=== PATIENT | female | born 1960 | race Caucasian/White ===

== ENCOUNTER 2018-02-01 10:55 | Emergency (ER) | payer OTHER ==
[~2018-02-01 10:55] MED LIST: AMOXICILLIN500 MG PO; ANBESOL PO; COZAAR 50MG TAB50 MG PO; PERCOCET 325 MG1 TA2 PO; TYLENOL500 MG PO
[2018-02-01 12:59] LABS: ABSOLUTE BASOPHIL COUNT 0.1 /CUMM (0.0-0.2); ABSOLUTE EOSINOPHIL COUNT 0.1 /CUMM (0.0-0.7); ABSOLUTE GRANULOCYTE CT 5.1 /CUMM (1.4-6.5); ABSOLUTE LYMPH COUNT 2.4 /CUMM (1.2-3.4); ABSOLUTE MONOCYTE COUNT 0.4 /CUMM (0.10-0.60); BASOPHIL % 0.8 % (0.0-2.0); EOSINOPHIL % 1.5 % (0-5); GRANULOCYTE % 62.9 % (42.2-75.2); HEMATOCRIT 44.9 % (37-47); MEAN CORPUSCULAR HGB 31.1 PG (27.0-31.0); MEAN CORPUSCULAR HGB CONC 33.6 G/DL (33.0-37.0); MEAN CORPUSCULAR VOLUME 92.5 FL (81.0-99.0); MEAN PLATELET VOLUME 7.5 FL (7.4-10.4); PLATELET COUNT 304 /CUMM (130-400); RBC DISTRIBUTION WIDTH 13.8 % (11.5-14.5); RED BLOOD CELL CT 4.85 /CUMM (4.20-5.40); WHITE BLOOD CELL COUNT 8.1 /CUMM (4.8-10.8)
--- NOTE | 2018-02-01 13:09 | ED GENERAL ADULT ---
History of Present Illness General Chief Complaint: General Adult Stated Complaint: HIGH BLOOD PRESSURE Source: patient Exam Limitations: no limitations Vital Signs & Intake/Output Vital Signs & Intake/Output Vital Signs Date Time Temp Pulse Resp B/P B/P Pulse O2 O2 Flow FiO2 Mean Ox Delivery Rate 02/01 1448 198/86 02/01 1403 99 216/118 02/01 1230 200/104 02/01 1059 98.4 93 18 184/100 98 Room Air Allergies Coded Allergies: NO KNOWN ALLERGIES (03/02/11) Reconcile Medications Losartan Potassium 100 MG TABLET 1 TAB PO DAILY HEART (Reported) Triage Note: 57 YO FEMALE TO TRIAGE FOR EVAL OF HIGH BLOOD PRESSURE, DENIES CHEST PAIN/LAU/BLURRY VISION. REPORTS SHE DID NOT TAKE HER BP MEDS THIS AM. PT STATES SHE WAS AT HER DRS OFFICE THIS AM AND THEY SENT HER HERE FOR HIGH BLOOD PRESSURE. STATES TAKES LOSARTAN 100MG DAILY. Triage Nurses Notes Reviewed? yes HPI: Patient presents for evaluation of elevated blood pressure. Patient states that she was seeing her primary care physician when they noted high blood pressure. She was told to go to the emergency department for an evaluation. She states she last saw her primary care physician about a year and a half ago. She typically does not take her blood pressure at home and can't say when the blood pressure began to elevate. She has been compliant with her current antihypertensive medication (losartan 100 mg daily). She denies drug or alcohol use but does smoke a pack of cigarettes daily. She denies chest pain, headache, visual changes or abdominal pain. Past History Travel History Traveled to [place] past 21 day No Medical History Any Pertinent Medical History? 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 No Review of Systems Review of Systems Constitutional: Reports: no symptoms. EENTM: Reports: no symptoms. Respiratory: Reports: no symptoms. Cardiovascular: Reports: no symptoms. GI: Reports: no symptoms. Genitourinary: Reports: no symptoms. Musculoskeletal: Reports: no symptoms. Skin: Reports: no symptoms. Neurological/Psychological: Reports: no symptoms. Hematologic/Endocrine: Reports: no symptoms. Immunologic/Allergic: Reports: no symptoms. All Other Systems: Reviewed and Negative Physical Exam Physical Exam General Appearance: SEE BELOW Comments: Gen.: Well-nourished, well-developed, no acute respiratory distress. Overweight.` Head: Normocephalic, atraumatic. Eyes: Normal inspection bilaterally Ears: Normal inspection bilaterally Nose: Normal inspection Throat/mouth : Moist mucosa Neck: Supple, full range of motion, no goiter Heart: Regular rate and rhythm, no murmurs rubs or gallops Lungs: Clear to auscultation bilaterally with normal air entry Chest: Nontender Back: Normal range of motion Abdomen: Soft, nontender, nondistended, normal bowel sounds Extremities: Normal range of motion grossly, equal radial pulses, no cyanosis clubbing or edema Neurologic: Cranial nerves grossly intact, speech is clear Skin: warm and dry Psychiatric: Calm, cooperative, no apparent delusions or hallucinations Core Measures ACS in differential dx? No CVA/TIA Diagnosis: No Sepsis Present: No Sepsis Focused Exam Completed? No Progress Differential Diagnoses I considered the following diagnoses in my evaluation of the patient: Medication noncompliance, essential hypertension, end organ injury, dietary indiscretion Plan of Care: Orders Procedure Date/time Status URINALYSIS 02/01 1103 Active COMPREHENSIVE METABOLIC PANEL 02/01 1103 Complete CBC WITHOUT DIFFERENTIAL 02/01 1103 Complete EKG 02/01 1103 Active Laboratory Tests 02/01/18 1244: Anion Gap 5, Estimated GFR > 60, BUN/Creatinine Ratio 13.3, Glucose 124 H, Calcium 9.7, Total Bilirubin 0.5, AST 21, ALT 26, Alkaline Phosphatase 68, Total Protein 6.6, Albumin 4.0, Globulin 2.6, Albumin/Globulin Ratio 1.5, CBC w Diff NO MAN DIFF REQ, RBC 4.85, MCV 92.5, MCH 31.1 H, MCHC 33.6, RDW 13.8, MPV 7.5, Gran % 62.9, Lymphocytes % 29.3, Monocytes % 5.5, Eosinophils % 1.5, Basophils % 0.8, Absolute Granulocytes 5.1, Absolute Lymphocytes 2.4, Absolute Monocytes 0.4 , Absolute Eosinophils 0.1, Absolute Basophils 0.1 Initial ED EKG: NSR, rate (98), no ST T wave changes Comments: 02/01/2018 1:20:57 PM patient's case discussed with Dr. Hdez who recommends the addition of hydrochlorothiazide. 02/01/2018 3:04:34 PM Tracey's blood pressure is trending downwards and she feels well at this time. I have discussed with her avoiding caffeine and salt. I've also stress she follow-up with her primary care physician for reevaluation of her blood pressure on Monday or Monday of this week. At discharge she requested an asthma inhaler because of difficulties with her breathing. Her daughter states that he does wheeze from time to time likely due to her cigarette smoking. Departure Departure Disposition: HOME OR SELF CARE Condition: Stable Clinical Impression Primary Impression: Essential hypertension Secondary Impressions: Bronchospasm, Encounter for smoking cessation counseling Referrals: Ketty DODD,Venkat Castaneda (PCP/Family) Additional Instructions: Avoid caffeine and salt as discussed. Try to quit smoking. Continue the losartan and add hydrochlorothiazide as prescribed. Use the albuterol inhaler if needed for wheezing. Follow-up with your primary care physician on Monday or Monday for reevaluation of your blood pressure and for possible testing of your lungs FOR asthma or COPD. Return if any concerns or sudden worsening. Departure Forms: Customer Survey General Discharge Information Prescriptions: Current Visit Scripts Hydrochlorothiazide 1 CAP PO DAILY #30 CAP Albuterol Sulfate (Proair Hfa) 2 PUF INH Q4-6 PRN PRN WHEEZING,TROUBLE BREATHING #1 INHAL Critical Care Note Critical Care Note Critical Care Time: non-applicable
[2018-02-01] MEDS ORDERED: LOSARTAN POTAS100 M1 PO (14:28)
[2018-02-01 14:48] VITALS: BP 198/86
[2018-02-01] MEDS ORDERED: HYDROCHLOROTH12.5 M3 PO (15:07)
[2018-02-01] MEDS ORDERED: PROAIR HFA8.5 GM INH (15:07)
== END 2018-02-01 15:16 ==
LOC: ERH 10:55
PROVIDERS: Physician Assistant Medical
DX: I10 Essential (primary) hypertension (principal); J98.01 Acute bronchospasm; Z71.6 Tobacco abuse counseling; F17.210 Nicotine dependence, cigarettes, uncomplicated
CPT/HCPCS: 93005; 93010; 96374; J3490

== ENCOUNTER 2018-02-06 07:49 | Emergency (ER) | payer OTHER ==
[~2018-02-06] VITALS: Ht 175.3 cm; Wt 117.9 kg
[~2018-02-06 07:49] MED LIST changes: +HYDROCHLOROTH12.5 M3 PO; +LOSARTAN POTAS100 M1 PO; +PROAIR HFA8.5 GM INH
[2018-02-06 07:51] VITALS: BP 162/94
--- NOTE | 2018-02-06 08:20 | ED GENERAL ADULT ---
History of Present Illness General Chief Complaint: General Adult Stated Complaint: HAD PCP APT TODAY BUT THINKS HER BP IS HIGH AGAIN? Source: patient, family Exam Limitations: no limitations Vital Signs & Intake/Output Vital Signs & Intake/Output Vital Signs Date Time Temp Pulse Resp B/P B/P Pulse O2 O2 Flow FiO2 Mean Ox Delivery Rate 02/06 0751 97.7 103 15 162/94 97 Room Air Room Air Allergies Coded Allergies: No Known Allergies (02/06/18) Reconcile Medications Albuterol Sulfate (Proair Hfa) 90 MCG HFA.AER.AD 2 PUF INH Q4-6 PRN PRN WHEEZING,TROUBLE BREATHING Hydrochlorothiazide 12.5 MG CAPSULE 1 CAP PO DAILY BLOOD PRESSURE Losartan Potassium 100 MG TABLET 1 TAB PO DAILY HEART (Reported) Triage Note: PT TO ED FOR BLOOD PRESSURE CHECK. PT HAS APPOINTMENT WITH DR. LYNN TODAY AND WAS NERVOUS HER BP WAS HIGH SO WANTED IT CHECKED. Triage Nurses Notes Reviewed? yes HPI: Patient is a 57-year-old female with history of hypertension and anxiety as well as a self stated case of "white coat hypertension," who presents today for a blood pressure check. She has a primary care appointment scheduled in approximately half an hour, but wanted to get her pressure checked first because she is anxious that it is high. Her systolic pressure was in the 160s, and she had no other symptoms. She does plan to keep the PCP appointment which is now in 15 minutes time. Past History Travel History Traveled to [place] past 21 day No Medical History Any Pertinent Medical History? 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 No Review of Systems Review of Systems Constitutional: Reports: no symptoms. All Other Systems: Reviewed and Negative Physical Exam Physical Exam General Appearance: well developed/nourished, no apparent distress, alert, awake , anxious Comments: HEENT: Inspection of the head reveals a normocephalic cranium with no signs of trauma. Ophtho: Extraocular muscles are intact. The sclera are noninjected, and there is no obvious discharge. Neck: No signs of trauma or asymmetry to the neck. Respiratory: The patient exhibits no signs of labored breathing. Cardiac: Non-tachycardic. GI: No gross abdominal distention. : Deferred Neuro: The patient is oriented to person, place, time, and situation, with no obvious focal motor deficits. Cranial nerves II through XII are intact, and gait is normal. Behavioral: Calm and cooperative Dermatologic: Dermatologic examination reveals no obvious rashes or exanthems. Core Measures ACS in differential dx? No CVA/TIA Diagnosis: No Sepsis Present: No Sepsis Focused Exam Completed? No Progress Differential Diagnoses I considered the following diagnoses in my evaluation of the patient: Essential hypertension, hypertensive emergency, hypertensive urgency, end according damage secondary to hypertension Plan of Care: Patient presents with asymptomatic hypertension. She believes that this is caused by her anxiety and white coat hypertension. She has a blood pressure cuff at home and her pressure has been relatively good of late. She has a PCP appointment 15 minutes from now and I have encouraged her to keep that appointment for reassessment of her blood pressure and recreations going forward. I find no evidence of an emergent medical condition and her medical screening examination is otherwise negative. In accordance with the [employer] guideline on a symptomatically hypertension, we have deferred further investigation for the time being. Stable at time of discharge. Initial ED EKG: none Departure Departure Time of Disposition: 817 Disposition: HOME OR SELF CARE Condition: Stable Clinical Impression Primary Impression: Hypertension Qualifiers: Hypertension type: unspecified Qualified Code: I10 - Essential ( primary) hypertension Referrals: Venkat Lynn MD (PCP/Family) Additional Instructions: Please go directly to your primary doctor's office to have your blood pressure rechecked, and to discuss your anxiety, which you identified as an ongoing problem. You may always return to the ER for reevaluation if other issues arise. Departure Forms: Customer Survey General Discharge Information Critical Care Note Critical Care Note Critical Care Time: non-applicable
== END 2018-02-06 08:27 ==
LOC: ERH 07:49
DX: I10 Essential (primary) hypertension (principal); F41.9 Anxiety disorder, unspecified; F17.210 Nicotine dependence, cigarettes, uncomplicated
CPT/HCPCS: 99282